=== PATIENT | male | born 1960 | race Caucasian/White ===

== ENCOUNTER → 2023-05-15 07:35 | Outpatient (REF) | payer OTHER, SELFPAY | LOC: PAVMRI 07:35 | PROVIDERS: ATTENDING PHYSICIAN Internal Medicine Gastroenterology | DX: K74.60 Unspecified cirrhosis of liver (principal); K76.9 Liver disease, unspecified | CPT/HCPCS: 74183; A9581 ==

== ENCOUNTER 2023-10-01 09:04 | Outpatient (RCR) | payer OTHER, SELFPAY | END 2023-10-02 07:41 | disposition home or self-care (01) | LOC: RPT 09:04 | PROVIDERS: ATTENDING PHYSICIAN Family Medicine | DX: M79.602 Pain in left arm (principal); M79.601 Pain in right arm | CPT/HCPCS: 97110; 97161; 97535 ==

== ENCOUNTER → 2024-01-21 08:26 | Outpatient (REF) | payer OTHER, SELFPAY | LOC: MRI 3T 08:26 | PROVIDERS: ATTENDING PHYSICIAN Internal Medicine Gastroenterology; FAMILY PHYSICIAN Family Medicine | DX: K76.9 Liver disease, unspecified (principal) | CPT/HCPCS: 74183; A9581 ==

== ENCOUNTER → 2024-04-21 14:55 | Outpatient (REF) | payer OTHER, SELFPAY | LOC: EMG 14:55 | PROVIDERS: ATTENDING PHYSICIAN Family Medicine | DX: G57.93 Unspecified mononeuropathy of bilateral lower limbs (principal) | CPT/HCPCS: 95886; 95910 ==